=== PATIENT | male | born 1965 | race American Indian/Alaskan Native ===

== ENCOUNTER 2020-08-21 07:55 | Emergency (ER) | payer SELFPAY | END 2020-08-21 08:20 | disposition left against medical advice (07) | LOC: ED 07:55 ==

== ENCOUNTER 2020-09-17 01:33 | Emergency (ER) | payer SELFPAY ==
[2020-09-17] MEDS ORDERED: ASPIRIN 325 MG TAB PO ONE (01:46)
--- NOTE | 2020-09-17 01:48 | Emergency Department Report ---
ED Chest Pain HPI - General Stated Complaint: CHEST PAIN Time Seen by Provider: 09/17/20 01:41 - History of Present Illness Initial Comments: Patient is a 55-year-old F Portuguese male who is presenting with chest discomfort. States pain is worse when he smokes cigarettesor takes a deep breath and better when he is not smoking. He also has had a slight has been persistent throughout the day. Patient has been symptomatic for the past 6 months productive of some clear mucus. Denies fever. Patient states he has had symptoms for the past 6 days. When asked about the Covid vaccine the patient states he is not vaccinated but that he did not have Covid because he had a negative test. When asked when his test was he states 8 months ago. - Related Data Previous Rx's Medication Instructions Recorded Last Taken Type Albuterol Mdi (or & Nicu Only) 2 puff IH QID PRN #1 inhalation 09/17/20 Unknown Rx [ProAir HFA Inhaler] DOXYCYCLINE Hyclate [Vibramycin 100 mg PO Q12HR #14 capsule 09/17/20 Unknown Rx CAP] predniSONE [Deltasone] 50 mg PO QDAY #5 tab 09/17/20 Unknown Rx Allergies Allergy/AdvReac Type Severity Reaction Status Date / Time No Known Allergies Allergy Unverified 08/21/20 08:06 Heart Score - HEART Score History: Slightly suspicious EKG: Normal Age: 45-65 Risk factors: 1-2 risk factors Troponin: < normal limit HEART Score: 2 - EKG Read Time Time EKG Completed: 01:03 EKG Read Time: 01:10 ED Review of Systems ROS: Stated complaint: CHEST PAIN Other details as noted in HPI Comment: All other systems reviewed and negative ED Past Medical Hx - Past Medical History Hx Hypertension: Yes Hx Arthritis: Yes (left knee) - Surgical History Additional Surgical History: left wrist - Social History Smoking Status: Current Every Day Smoker Substance Use Type: Alcohol - Medications Home Medications: Home Medications Medication Instructions Recorded Confirmed Last Taken Type Albuterol Mdi (or & Nicu Only) 2 puff IH QID PRN #1 inhalation 09/17/20 Unknown Rx [ProAir HFA Inhaler] DOXYCYCLINE Hyclate [Vibramycin 100 mg PO Q12HR #14 capsule 09/17/20 Unknown Rx CAP] predniSONE [Deltasone] 50 mg PO QDAY #5 tab 07/02/21 Unknown Rx ED Physical Exam - General General appearance: alert, in no apparent distress - Head Head exam: Present: atraumatic, normocephalic - Eye Eye exam: Present: normal appearance - ENT ENT exam: Present: normal orophraynx, mucous membranes moist - Neck Neck exam: Present: normal inspection - Respiratory Respiratory exam: Present: normal lung sounds bilaterally. Absent: respiratory distress, wheezes, rales, rhonchi - Cardiovascular Cardiovascular Exam: Present: regular rate, normal rhythm, normal heart sounds. Absent: systolic murmur, diastolic murmur, rubs, gallop - GI/Abdominal GI/Abdominal exam: Present: soft, normal bowel sounds. Absent: distended, tenderness, guarding, rebound, rigid - Rectal Rectal exam: Present: deferred - Extremities Exam Extremities exam: Present: normal inspection - Back Exam Back exam: Present: normal inspection - Neurological Exam Neurological exam: Present: alert, oriented X3 - Psychiatric Psychiatric exam: Present: normal affect, normal mood - Skin Skin exam: Present: warm, dry, intact, normal color. Absent: rash ED Course Vital Signs 09/17/20 09/17/20 02:14 02:15 Blood Pressure 111/74 O2 Sat by Pulse 93 94 Oximetry ED Medical Decision Making - Lab Data Result diagrams: 09/17/20 01:51 09/17/20 01:51 Lab Results 09/17/20 09/17/20 09/17/20 Range/Units 01:51 01:51 01:51 WBC 4.5 (4.5-11.0) K/mm3 RBC 4.85 (3.65-5.03) M/mm3 Hgb 16.2 H (11.8-15.2) gm/dl Hct 46.8 H (35.5-45.6) % MCV 97 H (84-94) fl MCH 34 H (28-32) pg MCHC 35 H (32-34) % RDW 13.5 (13.2-15.2) % Plt Count 200 (140-440) K/mm3 [place] % (Auto) Engineering Technical Analyst Add Manual Diff Complete Total Counted 100 Seg Neutrophils % Engineering Technical Analyst Seg Neuts % (Manual) 39.0 L (40.0-70.0) % Lymphocytes % (Manual) 46.0 H (13.4-35.0) % Monocytes % (Manual) 14.0 H (0.0-7.3) % Basophils % (Manual) 1.0 (0.0-1.8) % Nucleated RBC % Not Reportable Seg Neutrophils # Man 1.8 (1.8-7.7) K/mm3 Band Neutrophils # 0.0 K/mm3 Lymphocytes # (Manual) 2.1 (1.2-5.4) K/mm3 Abs React Lymphs (Man) 0.0 K/mm3 Monocytes # (Manual) 0.6 (0.0-0.8) K/mm3 Eosinophils # (Manual) 0.0 (0.0-0.4) K/mm3 Basophils # (Manual) 0.0 (0.0-0.1) K/mm3 Metamyelocytes # 0.0 K/mm3 Myelocytes # 0.0 K/mm3 Promyelocytes # 0.0 K/mm3 Blast Cells # 0.0 K/mm3 WBC Morphology Not Reportable Hypersegmented Neuts Not Reportable Hyposegmented Neuts Not Reportable Hypogranular Neuts Not Reportable Smudge Cells Not Reportable Toxic Granulation Not Reportable Toxic Vacuolation Not Reportable Dohle Bodies Not Reportable Pelger-Huet Anomaly Not Reportable Concetta Rods Not Reportable Platelet Estimate Consistent w auto Clumped Platelets Not Reportable Plt Clumps, EDTA Not Reportable Large Platelets Not Reportable Giant Platelets Not Reportable Platelet Satelliting Not Reportable Plt Morphology Comment Not Reportable RBC Morphology Normal Dimorphic RBCs Not Reportable Polychromasia Not Reportable Hypochromasia Not Reportable Poikilocytosis Not Reportable Anisocytosis Not Reportable Microcytosis Not Reportable Macrocytosis Not Reportable Spherocytes Not Reportable Pappenheimer Bodies Not Reportable Sickle Cells Not Reportable Target Cells Not Reportable Tear Drop Cells Not Reportable Ovalocytes Not Reportable Helmet Cells Not Reportable Kim-Tollette Bodies Not Reportable [place] Rings Not Reportable Mobile Cells Not Reportable Bite Cells Not Reportable Crenated Cell Not Reportable Elliptocytes Not Reportable Acanthocytes (Spur) Not Reportable Rouleaux Not Reportable Hemoglobin C Crystals Not Reportable Schistocytes Not Reportable Malaria parasites Not Reportable Merrick Bodies Not Reportable Hem Pathologist Commnt No D-Dimer 430.94 H (0-234) ng/mlDDU Sodium (137-145) mmol/L Potassium (3.6-5.0) mmol/L Chloride (98-107) mmol/L Carbon Dioxide (22-30) mmol/L Anion Gap mmol/L BUN (9-20) mg/dL Creatinine (0.8-1.3) mg/dL Estimated GFR ml/min BUN/Creatinine Ratio % Glucose (75-100) mg/dL Calcium (8.4-10.2) mg/dL Troponin T < 0.010 (0.00-0.029) ng/mL 09/17/20 Range/Units 01:51 WBC (4.5-11.0) K/mm3 RBC (3.65-5.03) M/mm3 Hgb (11.8-15.2) gm/dl Hct (35.5-45.6) % MCV (84-94) fl MCH (28-32) pg MCHC (32-34) % RDW (13.2-15.2) % Plt Count (140-440) K/mm3 [place] % (Auto) Add Manual Diff Total Counted Seg Neutrophils % Seg Neuts % (Manual) (40.0-70.0) % Lymphocytes % (Manual) (13.4-35.0) % Monocytes % (Manual) (0.0-7.3) % Basophils % (Manual) (0.0-1.8) % Nucleated RBC % Seg Neutrophils # Man (1.8-7.7) K/mm3 Band Neutrophils # K/mm3 Lymphocytes # (Manual) (1.2-5.4) K/mm3 Abs React Lymphs (Man) K/mm3 Monocytes # (Manual) (0.0-0.8) K/mm3 Eosinophils # (Manual) (0.0-0.4) K/mm3 Basophils # (Manual) (0.0-0.1) K/mm3 Metamyelocytes # K/mm3 Myelocytes # K/mm3 Promyelocytes # K/mm3 Blast Cells # K/mm3 WBC Morphology Hypersegmented Neuts Hyposegmented Neuts Hypogranular Neuts Smudge Cells Toxic Granulation Toxic Vacuolation Dohle Bodies Pelger-Huet Anomaly Concetta Rods Platelet Estimate Clumped Platelets Plt Clumps, EDTA Large Platelets Giant Platelets Platelet Satelliting Plt Morphology Comment RBC Morphology Dimorphic RBCs Polychromasia Hypochromasia Poikilocytosis Anisocytosis Microcytosis Macrocytosis Spherocytes Pappenheimer Bodies Sickle Cells Target Cells Tear Drop Cells Ovalocytes Helmet Cells Kim-Tollette Bodies [place] Rings Mobile Cells Bite Cells Crenated Cell Elliptocytes Acanthocytes (Spur) Rouleaux Hemoglobin C Crystals Schistocytes Malaria parasites Merrick Bodies Hem Pathologist Commnt D-Dimer (0-234) ng/mlDDU Sodium 145 (137-145) mmol/L Potassium 3.5 L (3.6-5.0) mmol/L Chloride 104.1 (98-107) mmol/L Carbon Dioxide 20 L (22-30) mmol/L Anion Gap 24 mmol/L BUN 10 (9-20) mg/dL Creatinine 1.7 H (0.8-1.3) mg/dL Estimated GFR 51 ml/min BUN/Creatinine Ratio 6 % Glucose 94 (75-100) mg/dL Calcium 9.6 (8.4-10.2) mg/dL Troponin T (0.00-0.029) ng/mL - EKG Data -: EKG Interpreted by Oh EKG shows normal: sinus rhythm, axis, intervals, QRS complexes, ST-T waves Rate: normal - EKG Data Interpretation: normal EKG - Radiology Data [address] [address] XRay Report Signed Patient: GISELE ROSADO MR#: [id number] 90 : 1965 Acct:[id number] Age/Sex: 55 / M ADM Date: 09/17/20 Loc: ED Attending Dr: Ordering Physician: CHAPARRITA BRAMBILA MD Date of Service: 09/17/20 Procedure(s): XR chest 1V ap Accession Number(s): [id number] cc: CHAPARRITA BRAMBILA MD Fluoro Time In Minutes: CHEST 1 VIEW INDICATION / CLINICAL INFORMATION: chest pain. FINDINGS: SUPPORT DEVICES: None. HEART / MEDIASTINUM: No significant abnormality. LUNGS / PLEURA: No significant pulmonary or pleural abnormality. No pneumothorax. ADDITIONAL FINDINGS: No significant additional findings. IMPRESSION: 1. No acute findings. Signer Name: Juma Gonzales MD Signed: 09/17/2020 2:17 AM Workstation Name: [id number] [address] [id number] Cat Scan Report Signed Patient: GISELE ROSADO MR#: [id number] [birth year] : 1965 Acct:[id number] Age/Sex: 55 / M ADM Date: 09/17/20 Loc: ED Attending Dr: Ordering Physician: CHAPARRITA BRAMBILA MD Date of Service: 09/17/20 Procedure(s): CT angio chest Accession Number(s): [id number] cc: CHAPARRITA BRAMBILA MD CTA CHEST WITH IV CONTRAST INDICATION: Patient complains of chest pain, elevated D-dimer. Dyspnea TECHNIQUE: Axial CT images were obtained through the chest after injection of 100 mL IV contrast. 3 plane MIP reconstructions were produced. All CT scans at this location are performed using CT dose reduction for ALARA by means of automated exposure control. COMPARISON: None available. FINDINGS: PULMONARY ARTERIES: No pulmonary emboli within the limits of motion exam. AORTA AND ARTERIES: No acute abnormality. MEDIASTINUM: No mass, lymphadenopathy or other significant abnormality. The heart is normal in size without a pericardial effusion. The trachea and main bronchi are patent and normal in caliber. LUNGS: No suspicious consolidation, nodule or mass. No pneumothorax or pleural effusion. ADDITIONAL FINDINGS: None. UPPER ABDOMEN: No acute findings. Fatty liver BONES: No significant osseous abnormality. IMPRESSION: 1. No CT evidence for pulmonary embolism. 2. Mild nonspecific bronchial wall thickening identified bilaterally. 3. Fatty liver. Signer Name: Juma Gonzales MD Signed: 09/17/2020 4:33 AM Workstation Name: [id number] - Medical Decision Making Patient had a CTA negative for pulmonary embolus. Does have some bronchial inflammatory changes consistent with acute bronchitis. Is also fits with the patient's discomfort. Because of the duration of symptoms patient be placed on antibiotics. Patient is a smoker. Patient urged to take a COVID-19 test as an outpatient be discharged home. Critical care attestation.: If time is entered above; I have spent that time in minutes in the direct care of this critically ill patient, excluding procedure time. ED Disposition Clinical Impression: Acute exacerbation of chronic bronchitis Disposition: DC- TO HOME OR SELFCARE Is pt being admited?: No Does the pt Need Aspirin: No Condition: Stable Instructions: Chronic Bronchitis (ED), Acute Bronchitis, Adult, [id number] Referrals: KEVIN TOLEDO MD [Referring] - 3-5 Days Time of Disposition: 04:53
[2020-09-17 02:19] VITALS: BP 111/74
[2020-09-17 02:21] LABS: Hematocrit 46.8 % (35.5-45.6); Hemoglobin 16.2 gm/dl (11.8-15.2); Mean Corpuscular HGB Conc 35 % (32-34); Mean Corpuscular Volume 97 fl (84-94); Platelet Count 200 K/mm3 (140-440); Red Blood Count 4.85 M/mm3 (3.65-5.03); Red Cell Distribution Width 13.5 % (13.2-15.2)
[2020-09-17 03:02] LABS: RBC Morphology Normal; Total Cells Counted 100
[2020-09-17 03:03] LABS: Platelet Estimate Consistent w Auto
[2020-09-17 03:33] LABS: Calcium 9.6 mg/dL (8.4-10.2)
[2020-09-17] MEDS ORDERED: SODIUM CHLORIDE 0.9% 1000 ML 1,000 ML IV ONE (03:51)
== END 2020-09-17 06:22 | disposition home or self-care (01) ==
LOC: ED 01:33
DX: J20.9 Acute bronchitis, unspecified (principal); I10 Essential (primary) hypertension; M19.91 Primary osteoarthritis, unspecified site; F17.200 Nicotine dependence, unspecified, uncomplicated; Z98.890 Other specified postprocedural states; Z79.899 Other long term (current) drug therapy
CPT/HCPCS: 36415; 71045; 71275; 80048; 84484; 85007; 85025; 85379; 99284; Q9967